=== PATIENT | male | born 1940 | race Caucasian/White ===

== ENCOUNTER 2016-08-19 15:25 | Emergency (ER) | END 2016-08-19 21:48 | disposition left against medical advice (07) | DX: S89.91XA Unspecified injury of right lower leg, initial encounter (principal); S89.92XA Unspecified injury of left lower leg, initial encounter; R41.82 Altered mental status, unspecified; R42 Dizziness and giddiness; W18.39XA Other fall on same level, initial encounter; Y92.481 Parking lot as the place of occurrence of the external cause ==